=== PATIENT | male | born 1960 | race Caucasian/White ===

== ENCOUNTER 2022-02-09 06:15 | Day surgery (SDC) | payer OTHER, SELFPAY ==
[2022-02-09] VITALS (13 sets, daily range): BP systolic 131–159; BP diastolic 90–100; PULSE 74–88; RESP 14–18; TEMP 36.1–36.9; O2SAT 94–98; BMI 25.2
[2022-02-09] MEDS: SODIUM CHLORIDE 0.9 % (FLUSH) 10 ML SYRINGE IVF (06:50)
[2022-02-09] MEDS: LACTATED RINGERS 1000 ML 1,000 ML 35 ML IV (06:50)
--- NOTE | 2022-02-09 08:13 | W.ANESCHARGE ---
Anesthesia Charges Start Date/Time Anesthesia Start Date: 02/09/22 Anesthesia Start Time: 07:34 Stop Date/Time Anesthesia Stop Date: 02/09/22 Anesthesia Stop Time: 08:50 Summary Emergency: No
[2022-02-09] MEDS: BUPIVACAINE 0.25% 30 ML INJECTION (08:31)
--- NOTE | 2022-02-09 08:42 | PM.GSPRC ---
Operative Note Date of procedure: 02/09/22 Type of Procedure: Laparoscopic right inguinal hernia repair with placement of mesh Procedure Description: After discussing the risks and benefits of the procedure, the patient signed informed consent.? The operative site was marked and the patient was brought to the operating room and placed on the operating table in supine position.? Care was taken to pad the patient's pressure points.?? The patient was then intubated by anesthesia.?? The operative site was then prepped and draped in the usual sterile fashion.? A time-out was then performed. A curvilinear incision was made below the umbilicus. Dissection was carried down to subcutaneous tissue until the anterior rectus fascia was encountered. This was incised off the midline. The rectus muscles were then retracted exposing the posterior fascia. A space maker port with a dissecting balloon was then introduced. The preperitoneal space was inflated under direct vision. The balloon was then removed and the preperitoneal space insufflated. A 10 mm 0 degree scope was then advanced and the area was surveyed for bleeding. Dissection began on the right side. Andrew's ligament and the pubic bone was exposed medially. Following this dissection was carried out laterally. A direct defect was noted. The peritoneal sac was identified and further dissected free from the cord structures using a combination of sharp and blunt dissection. Once the sac was completely reduced, a piece of large Bard 3DMax mesh for the appropriate side was placed into the abdomen. This was positioned with the marker pointed medially. A Tacker was used to attach the mesh medially at Andrew's ligament and 1 tack laterally with care to avoid the epigastric vessels and stay above the inguinal ligament. Once this was completed the sac was placed on top of the mesh and the preperitoneal space desufflated under direct vision. The ports were removed. The fascia from the infraumbilical port was closed with 0 Vicryl. The skin incisions were closed with absorbable subcuticular suture. Sterile dressings were then applied. The scrotum was examined to ensure that both testicles were down. Instrument sponge and needle counts were correct at the end of the case. ? Sterile dressings were then applied. ? The patient was then woken and transported to the recovery area in stable condition. ? The patient tolerated the procedure well. Findings: Direct inguinal hernia, right side Anesthesia: GETA Surgeon: Marcia Castillo MD Estimated blood loss (mL): 5 Condition: stable Disposition: same day
[2022-02-09] MEDS: OXYCODONE 5 MG TABLET PO (09:45)
== END 2022-02-09 10:53 | disposition home or self-care (01) ==
PROVIDERS: Visit Provider Surgery
PROC: (CPT 49650; principal; 2022-02-09 07:30)
DX: K40.90 Unilateral inguinal hernia, without obstruction or gangrene, not specified as recurrent (principal)
CPT/HCPCS: 49650; 00830; A9270; C1781; J0330; J1100; J1885; J2250; J2370; J2405; J2704; J3010; J3490; J7120

== ENCOUNTER 2024-07-16 13:29 | Emergency (ER) | payer OTHER, SELFPAY ==
--- OUTSIDE RECORDS SUMMARY | 2024-07-16 13:32 | XMS_ITS | Clinical Summary ---
Author Organization [facility] Address [place], [place] [address] Care Team Providers Care Petroleum Transport Driver Name Role Phone Harinder Merida MD Primary Care Provider [phone] Allergies Active Allergy Reactions Criticality Noted Date Comments Atorvastatin Other - Describe In Comment Field 06/01/2007 ALT to 126 Medications cholecalciferol, Vitamin D3, 2,000 unit tabletIndications: Vitamin D deficiency Take 1 Tablet (2,000 units) by mouth once daily. 90 Tablet 3 04/29/20 22 Active fluticasone (50 mcg per actuation) nasal solution (FLONASE)Indicatio ns:Chronic sinusitis, unspecified location SPRAY 1 SPRAY INTO EACH NOSTRIL ONCE DAILY 48 mL 1 09/20/19 24 Active sildenafiL, pulm.hypertension, (REVATIO) 20 mg tabletIndications: Erectile dysfunction, unspecified erectile dysfunction type Take 1-5 pills (start at lower dose and increase next time if needed) 30 mins prior to sexual intercourse 30 Tablet 3 05/21/20 24 Active chlorthalidone (HYGROTON) 25 mg tabletIndications: Essential hypertension Take 1 Tablet (25 mg) by mouth once daily. 90 Tablet 3 05/21/20 24 Active ezetimibe (ZETIA) 10 mg tabletIndications: Mixed hyperlipidemia Take 1 Tablet (10 mg) by mouth once daily. 90 Tablet 3 05/21/20 24 Active lisinopriL (PRINIVIL; ZESTRIL) 5 mg tabletIndications: Essential hypertension Take 1 Tablet (5 mg) by mouth once daily. 90 Tablet 3 05/21/20 24 Active rosuvastatin (CRESTOR) 10 mg tabletIndications: Mixed hyperlipidemia Take 1 Tablet (10 mg) by mouth once daily. 90 Tablet 3 05/21/20 24 Active aspirin (ECOTRIN) 81 mg enteric coated tabletIndications: Coronary artery disease involving [place] coronary artery of [place] heart without angina pectoris TAKE 1 TABLET (81 MG) BY MOUTH ONCE DAILY WITH A MEAL. 90 Tablet 3 05/31/20 24 Active Active Problems Problem Noted Date Diagnosed Date Vitamin D deficiency 05/17/2023 Chronic sinusitis 05/17/2023 Moderate coronary artery disease via CT 05/17/20 23 Overview (05/17/2023): Calcium score 185 Routine adult health maintenance 03/31/2017 Overview (03/31/2017): Colonoscopy 03/2017 normal repeat in 10 years Vertigo 05/14/2016 Benign paroxysmal positional vertigo 09/01/2012 Tachycardia 09/14/2011 Mixed hyperlipidemia 05/10/2007 Unspecified essential hypertension 05/10/2007 Resolved Problems Problem Noted Date Diagnosed Date Resolved Date GRIS 10/27/2011 AHI-13.5 10/31/201105/06 Sleep apnea 09/14/2011 05/06/2015 Encounters Date Type Department Care Team Description 05/28/2024 Refill [facility] [address] [place] [address] Harinder Merida MD Refill Request (Aspirin) 05/21/2024 7:00 AM PSYCH SPECIALIST Office Visit [facility] [address] [place] [address] Harinder Merida MD Physical (63 yr old male) 05/21/2024 Travel 05/16/2024 7:55 AM PSYCH SPECIALIST Office Visit [facility] [address] [place] [address] Shahid Riddle MD Employment Physical (63 year old male) 05/16/2024 Travel from Last 3 Months Immunizations Name Administration Dates Next Due AMB INFLUENZA, IIV4 (AGE=>6M OS) V (Flu Clinic Only) 02/13/2020 Influenza Virus, Unspecified 03/17/2021 Influenza, High-dose Inactivated 03/17/2024 Influenza, IIV3 (Age 6-35 mos) 02/15/2018 Influenza, IIV3 (Age >=3 years) 03/27/20 16,02/26/2013,02/16/2012,2010 Influenza, IIV4 05/17/2023, 2,04/17/2015,2013 Influenza, IIV4 (=>6mos) MDV 02/16/2017 Pneumococcal Conj 20-valent (Prevnar 20) 05/21/2024 Td (Age >=7 Years) 03/06/2003 Tdap 05/20/2021,06/25/2011 Zoster (Shingrix-RZV, recombinant) 02/12/2021, Family History Medical History Relation Name Comments Heart Disease Father no CT. CABG at age 60 Good Health Mother Heart attack Paternal Grandfather Cancer No Family History Relation Name Status Comments Father Mother Paternal Grandfather Social History Tobacco Use Types Packs/Day Years Used Date Smoking Tobacco: Never Smokeless Tobacco: Never Tobacco Cessation:Counseling Given: Yes Alcohol Use Standard Drinks/Week Comments Yes 0 (1 standard drink = 0.6 oz pur e alcohol) very occasionally PHQ-2 Answer Date Recorded PHQ-2 TOTAL SCORE 0 05/21/2024 Social Connections Answer Date Recorded Do you often feel lonely or isolated from those around you? 0 05/21/2024 Alcohol Use Answer Date Recorded How often do you have a drink containing alcohol ? 1 02/02/2022 How many drinks containing a lcohol do you have on a typical day when you are drinking? 0 02/02/2022 How often do you have five or more drinks on one occasion? 0 02/02/2022 Financial Resource Strain Answer Date R ecorded Difficulty of Paying Living Expenses 3 05/21/2024 Difficulty of Paying Living Expenses Not on file 05/21/2024 Food Insecurity Answer Date Recorded Do you worry your food will run out before you are able to buy more? 1 05/21/2024 Transportation Needs Answer Date Record ed Does lack of transportation keep you from medica l appointments? 1 05/21/2024 Does lack of transportation keep you from work, meetings or getting things that you need? 1 05/21/2024 Housing Stability Answer Date Recorded What is your housing situation today? 1 05/21/2024 Utilities Answer Date Recorded Do you have trouble paying f or utilities (for example, heat, electricity, water, phone)? 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 Not on file Not on file No t on file Obstetrics History Last Filed Vital Signs Vital Sign Reading Time Taken Comments Blood Pressure 126/78 05/21/2024 7:03 AM PSYCH SPECIALIST Pulse 80 05/21/2024 7:03 AM PSYCH SPECIALIST Temperature 36.6 C (97.9 F) 05/20/2021 8:41 AM PSYCH SPECIALIST Respiratory Rate 18 07/08/2020 11:07 AM PSYCH SPECIALIST Oxygen Saturation 98% 05/21/2024 7:03 AM PSYCH SPECIALIST Inhaled Oxygen Concentration - - Weight 75 kg (165 lb 6.4 oz) 05/21/2024 7:03 AM PSYCH SPECIALIST Height 178 cm (5' 10.08) 05/21/2024 7:03 AM PSYCH SPECIALIST Body Mass Index 23.68 05/21/2024 7:03 AM PSYCH SPECIALIST Plan of Treatment Health Maintenance Due Date Last Done Comments RSV vaccine for adults or (1 - Risk 60-74 years 1-dose series) 2018 BMI (ht and wt on same day) for age 18+ 05/21/2025 05/21/2024, 05/16/2024, 05/17/2023, Additional history exists Depression screening for age 12+ 05/21/2025 05/21/2024, 05/17/2023, 05/17/2023, Additional history exists Colonoscopy through age 75 03/30/2027 03/30/2017, Lipids for age 45-75 03/22/2029 03/22/2024, 05/17/2023, 04/27/2022, Additional history exists Tetanus booster 05/20/2031 05/20/2021, 06/13, 03/06/2003 Hepatitis C screening for ag e 18-79 Completed 05/20/2020 Zoster (shingles) series for age 50+ Completed 02/12/2021, 05/20/2020 Tdap Completed 05/20/2021, 06/25/2011 COVID-19 vaccine series Completed 03/17/20 24, 05/21/2023, 04/10/2022, Additional history exists Influenza for age 65+ Completed 03/17/2024 , 05/17/2023, 03/22/2022, Additional history exists HIV for age 15-65 Completed 05/21/2024 Pneumococcal series for age 50+ Completed 4 Procedures Procedure Name Priority Date/Time Associated Diagnosis Comments PSA TOTAL Routine 05/21/2024 7:52 AM PSYCH SPECIALIST Screening for prostate cancer BASIC METABOLIC PANEL Routine 05/21/2024 7:52 AM PSYCH SPECIALIST Essential hypertension HEPATIC FUNCTION PANEL Routine 05/21/2024 7:52 AM PSYCH SPECIALIST Elevated liver enzymes VITAMIN D 25 (DEFICIENCY) Routine 05/21/2024 7:52 AM PSYCH SPECIALIST Vitamin D deficiency ANTI HIV 1/2 Routine 05/21/2024 7:52 AM PSYCH SPECIALIST Screening for HIV (human immunodeficiency virus) URINALYSIS MACROSCOPIC - [facility] ONLY POC DIP ([facility]) Routine 05/16/2024 8:11 AM PSYCH SPECIALIST Encounter for examination required by Department of Transportation (DOT) LIPID PANEL W REFLEX MEASURED LDL Routine 03/22/2024 10:32 AM CDT Mixed hyperlipidemia ANTI HCV Routine 05/20/2020 1:00 PM PSYCH SPECIALIST Need for hepatitis C screening test COLONOSCOPY 03/30/2017 10:46 AM CDT from Last 3 Months or Most Recently Relevant to Health Maintenance Results * VITAMIN D 25 (DEFICIENCY) (05/21/2024 7:52 AM PSYCH SPECIALIST) VITAMIN D,25-OH,TOTAL,IA 54 30 - 100 ng/mL [facility] Comment: Vitamin D Status 25-OH Vitamin D: Deficiency: <20 ng/mL Insufficiency: 20 - 29 ng/mL Optimal: > or = 30 ng/mL For 25-OH Vitamin D testing on patients on D2-supplementation and patients for whom quantitation of D2 and D3 fractions is required, the QuestAssureD(TM) 25-OH VIT D, (D2,D3), LC/MS/MS is recommended: order code [id number] (patients >2yrs). See Note 1 Note 1 For additional information, please refer to http://Ameriprime.Skymarker/faq/IBF096 (This link is being provided for informational/ educational purposes only.) Blood BLOOD SPECIMEN / Unknown 05/21/2024 7:52 AM PSYCH SPECIALIST 05/21/2024 7:52 AM PSYCH SPECIALIST us Harinder Merida MD SEND OUTS Final Resu lt 5minutes [facility] [address] [place] [address], [facility] [address] [place] [address] * ANTI HIV 1/2 [69362.0] (05/21/2024 7:52 AM PSYCH SPECIALIST) HIV AG/AB, 4TH GEN NON-REACT YORDY NON-REACT YORDY [facility] Comment: HIV-1 antigen and HIV-1/HIV-2 antibodies were not detected. There is no laboratory evidence of HIV infection. PLEASE NOTE: This information has been disclosed to you from records whose confidentiality may be protected by state law. If your state requires such protection, then the state law prohibits you from making any further disclosure of the information without the specific written consent of the person to whom it pertains, or as otherwise permitted by law. A general authorization for the release of medical or other information is NOT sufficient for this purpose. For additional information please refer to http://Ameriprime.Lemnis Lighting/faq/OZW326 (This link is being provided for informational/ educational purposes only.) The performance of this assay has not been clinically validated in patients less than 2 years old. Blood BLOOD SPECIMEN / Unknown 05/21/2024 7:52 AM PSYCH SPECIALIST 05/21/2024 7:52 AM PSYCH SPECIALIST us Harinder Merida MD SEND OUTS Final Resu lt Performing Organization Address [facility]/ZIP Co de Phone Number [facility] [address] [place] [address], [place] [phone] [facility] [address] [facility] [place] [address] * PSA TOTAL (05/21/2024 7:52 AM PSYCH SPECIALIST) PSA, TOTAL 0.63 < OR = 4.00 ng/mL [facility] Comment: The total PSA value from this assay system is standardized against the WHO standard. The test result will be approximately 20% lower when compared to the equimolar-standardized total PSA (Eric Camila). Comparison of serial PSA results should be interpreted with this fact in mind. This test was performed using the Siemens chemiluminescent method. Values obtained from different assay methods cannot be used interchangeably. PSA levels, regardless of value, should not be interpreted as absolute evidence of the presence or absence of disease. Blood BLOOD SPECIMEN / Unknown 05/21/2024 7:52 AM PSYCH SPECIALIST 05/21/2024 7:52 AM PSYCH SPECIALIST us Harinder Merida MD CHEMISTRY Final Resu lt Performing Organization Address [facility]/ZIP Co de Phone Number 5minutes [facility] [address] [place] [address], [place] [phone] [facility] [address] [place] [address] * (ABNORMAL) HEPATIC FUNCTION PANEL (05/21/2024 7:52 AM PSYCH SPECIALIST) PROTEIN, TOTAL 6.6 6.1 - 8.1 g/dL [facility] ALBUMIN 4.3 3.6 - 5.1 g/dL [facility] GLOBULIN 2.3 1.9 - 3.7 g/dL (calc) [facility] ALBUMIN/GLOBULIN RATIO 1.9 1.0 - 2.5 (calc) [facility] BILIRUBIN, TOTAL 0.8 0.2 - 1.2 mg/dL [facility] BILIRUBIN, DIRECT 0.2 < OR = 0.2 mg/dL [facility] BILIRUBIN, INDIRECT 0.6 0.2 - 1.2 mg/dL (calc) [facility] ALKALINE PHOSPHATASE 24(L) 35 - 144 U/L [facility] AST 31 10 - 35 U/L [facility] ALT 24 9 - 46 U/L [facility] Blood BLOOD SPECIMEN / Unknown 05/21/2024 7:52 AM PSYCH SPECIALIST 05/21/2024 7:52 AM PSYCH SPECIALIST us Harinder Merida MD CHEMISTRY Final Resu lt 5minutes [facility] [address] [place] [address], [address] [address] * BASIC METABOLIC PANEL (05/21/2024 7:52 AM PSYCH SPECIALIST) Pathologist [facility] GLUCOSE 93 65 - 99 mg/dL [facility] Comment: Fasting reference interval UREA NITROGEN (BUN) 13 7 - 25 mg/dL [facility] CREATININE 0.91 0.70 - 1.35 mg/dL [facility] EGFR 94 > OR = 60 mL/min/1. 73m2 [facility] BUN/CREATININE RATIO SEE NOTE: 6 - 22 (calc) [facility] Comment: Not Reported: BUN and Creatinine are within reference range. SODIUM 139 135 - 146 mmol/L [facility] POTASSIUM 3.9 3.5 - 5.3 mmol/L [facility] CHLORIDE 102 98 - 110 mmol/L [facility] CARBON DIOXIDE 29 20 - 32 mmol/L [facility] ELECTROLYTE BALANCE 8 7 - 17 mmol/L (calc) [facility] CALCIUM 9.5 8.6 - 10.3 mg/dL [facility] Blood BLOOD SPECIMEN / Unknown 05/21/2024 7:52 AM PSYCH SPECIALIST 05/21/2024 7:52 AM PSYCH SPECIALIST Harinder Merida MD CHEMISTRY Final Resu lt Performing Organization Address City/[facility]/ZIP Co de Phone Number [facility] [address] [place] [address], [place] [phone] [facility] [address] [place] [address] * POCT Urinalysis Dipstick Only (05/16/2024 8:11 AM PSYCH SPECIALIST) Pathologist [facility] PH 7.5 5.0 - 8.0 [facility] SPECIFIC GRAVITY 1.015 1.001 - 1.035 [facility] GLUCOSE NEGATIVE NEGATIVE [facility] BILIRUBIN NEGATIVE NEGATIVE [facility] KETONES NEGATIVE NEGATIVE [facility] OCCULT BLOOD NEGATIVE NEGATIVE [facility] PROTEIN NEGATIVE NEGATIVE [facility] NITRITE NEGATIVE NEGATIVE [facility] LEUKOCYTE ESTERASE NEGATIVE NEGATIVE [facility] Urine URINE SPECIMEN / Unknown 05/16/2024 8:11 AM PSYCH SPECIALIST 05/16/2024 8:12 AM PSYCH SPECIALIST us Shahid Riddle MD URINE Final Re sult Performing Organization Address City/[facility]/ZIP Co de Phone Number [facility] [address] [place] [address], [place] [phone] [facility] [address] [place] [address] * LIPID PANEL W REFLEX MEASURED LDL (03/22/2024 10:32 AM CDT) CHOLESTEROL, TOTAL 144 <200 mg/dL [facility] HDL CHOLESTEROL 60 > OR = 40 mg/dL [facility] TRIGLYCERIDES 125 <150 mg/dL [facility] LDL-CHOLESTEROL 63 mg/dL (calc) [facility] Comment: Reference range: <100 Desirable range <100 mg/dL for primary prevention; <70 mg/dL for patients with CHD or diabetic patients with > or = 2 CHD risk factors. LDL-C is now calculated using the Majo calculation, which is a validated novel method providing better accuracy than the Friedewald equation in the estimation of LDL-C. Marino SS et al. BON. 2013;310(71): 4197-5594 (http://education.Skymarker/faq/WNM697) CHOL/HDLC RATIO 2.4 <5.0 (calc) [facility] NON HDL CHOLESTEROL 84 <130 mg/dL (calc) [facility] Comment: For patients with diabetes plus 1 major ASCVD risk factor, treating to a non-HDL-C goal of <100 mg/dL (LDL-C of <70 mg/dL) is considered a therapeutic option. Blood BLOOD SPECIMEN / Unknown 03/22/2024 10:32 AM CDT 03/22/2024 10:32 AM CDT Harinder Merida MD CHEMISTRY Final Resu lt 5minutes [facility] [address] [place] [address], [facility] [address] [place] [address] * ANTI HCV (05/20/2020 1:00 PM PSYCH SPECIALIST) [facility] HEPATITIS C ANTIBODY Non-React yordy Non-React yordy 05/20/2020 7:46 PM PSYCH SPECIALIST [facility] Comment:Antibodies to HCV no t detected; does not exclude the possibility of exposure to HCV. Blood BLOOD SPECIMEN / Unknown Venipuncture / Unknown 05/20/2020 1:00 PM PSYCH SPECIALIST 05/20/2020 1:00 PM PSYCH SPECIALIST us Harinder Merida MD SEND OUTS Final Resu lt [facility] [address] [place] [address], [place] * COLONOSCOPY (03/30/2017 10:46 AM CDT) 03/30/2017 10:4 6 AM CDT Narrative Transcriptions Marino Oloms MD - 03/30/2017 12:01 PM CDT Patient Name: Kirby Sanches Procedure Date: 03/30/2017 Gender: Male Date of : 1960 Admit Type: Outpatient Procedure: Colonoscopy Proceduralist: Marino Olmos MD , Tracy Hess (Nurse) Referring MD: Harinder Merida Indications/Pre-Op Diagnosis: Screening for colorectal malignant neoplasm, This is the patient's first colonoscopy Medications: Fentanyl 100 micrograms IV, Midazolam 4 mgIV, The level of sedation administered wasmoderate Procedure Description: The patient had risks, benefits and alternatives explained to andgave informed consent. The patient had a stable cardiopulmonary status and judged an adequate candidate for conscious sedation. The [id number] was passed through the anus and advanced tothe cecum, identified by appendiceal orifice and ileocecal valve. The colonoscopy was performed without difficulty. The patient toleratedthe procedure well. The quality of the bowel preparation was good. The ileocecal valve, appendiceal orifice, and rectum were photographed. Complications: No immediate complications. Estimated Blood Loss & Specimen: Estimated blood loss: none. Specimen collected - Yes and sent to Laboratory Findings: The perianal and digital rectal examinations were normal. A 3 mm polyp was found in the ascending colon. The polyp was sessile. Biopsies were taken with a cold forceps for histology. Many small-mouthed diverticula were found in the sigmoid colon. The exam was otherwise without abnormality on direct and retroflexion views. Impressions/Post-Op Diagnosis: - One 3 mm polyp in the ascending colon. Biopsied. - Diverticulosis in the sigmoid colon. - The examination was otherwise normal on direct and retroflexionviews. Recommendation: - Patient has a contact number available for emergencies. The signsand symptoms of potential delayed complications were discussed with the patient. Return to normal activities tomorrow. Written discharge instructions were provided to the patient. - Resume previous diet. - Continue present medications. - Await pathology results. - Repeat colonoscopy is recommended. The colonoscopy date will be determined after pathology results from today's exam become available for review. Moderate Sedation: Moderate (conscious) sedation was administered by the endoscopy nurse and supervised by the endoscopist. The following parameters were monitored: oxygen saturation, heart rate, respiratory rate, blood pressure, adequacy of pulmonary ventilation and reponse to care. [facility] and nursing notes for moderate sedation details. Total physician intraservice time was 21 minutes. Marino Olmos MD 03/30/2017 12:01:44 PM This report has been signed electronically. Note Initiated On: 03/30/2017 10:46 AM Scope In: 11:39:44 AM Scope Withdrawal Time 0 hours 9 minutes 48 seconds Scope Out: 11:57:28 AM us Marino Olmos MD PROCEDURE ORD Final Res ult from Last 3 Months or Most Recently Relevant to Health Maintenance Insurance [facility] [employer] * Guarantor: [employer] Account Type Relation to Patient Date of Phone Billing Address [facility] [address] [address] Care Teams Petroleum Transport Driver Relationship Specialty Start Date End Date Harinder Merida MD [address] [place] [address] PCP - General Family Practice 06/15/13
[2024-07-16 13:38] VITALS: BP 145/97; PULSE 90; RESP 16; TEMP 37; O2SAT 97; BMI 22.8
--- NOTE | 2024-07-16 14:07 | CRLHL7_ITS ---
For Patients: As a result of the Century Cures Act, medical imaging exams and procedure reports are released immediately into your electronic medical record. You may view this report before your referring provider. If you have questions, please contact your health care provider. INDICATION: Posttraumatic left shoulder pain. Clinical concern for possible left sternoclavicular subluxation/dislocation. COMPARISON: Same day radiographs at 1233 hours. TECHNIQUE: CT of the chest without intravenous contrast. Please note that all CT scans at this facility use dose modulation, iterative reconstruction, and/or weight-based dosing when appropriate to reduce radiation dose to as low as reasonably achievable. FINDINGS: THORAX Visualized Lower Neck: No lower cervical adenopathy. Lungs: No significant pulmonary findings. Bilateral posterior segment lower lobe pleural-based linear opacities are consistent with subsegmental atelectasis or minor fibrosis, not considered clinically significant. Pleura: No pleural effusion. No pneumothorax. Mediastinum: Thoracic aorta and pulmonary trunk are normal in caliber. Moderate to severe multivessel atherosclerotic coronary artery calcifications are noted incidentally. Trachea and esophagus are normal in appearance. No mediastinal lymphadenopathy. ABDOMEN Visualized Upper Abdomen: No significant findings. SKELETON AND BODY WALL There is subcutaneous hyperattenuating fat stranding superficial to the left sternoclavicular joint (series 2; image 41) consistent with edema/hemorrhage in the periarticular soft tissues. No evidence of significant subluxation or dislocation of the left sternoclavicular joint. No fracture of the medial left clavicle or manubrium is identified. No acute traumatic injury is otherwise identified. The bilateral acromioclavicular joints are incompletely included in the field of view. IMPRESSION: There is subcutaneous hyperattenuating fat stranding superficial to the left sternoclavicular joint (series 2; image 41) consistent with edema/hemorrhage involving the periarticular soft tissues. No evidence of anterior or posterior subluxation or dislocation of the left sternoclavicular joint. No fracture of the medial left clavicle or manubrium is identified. Incidental findings described in the body of the report. Please note that all CT scans at this facility use dose modulation, iterative reconstruction, and/or weight-based dosing when appropriate to reduce radiation dose to as low as reasonably achievable. Dictated by Hilario Loera MD @ 07/16/2024 2:51:53 PM (Electronically Signed)
--- NOTE | 2024-07-16 14:08 | ED.GENADULT ---
HPI - General Adult General Chief complaint: Chest Pain Stated complaint: Fall Tuesday, chest pain Time Seen by Provider: 07/16/24 13:32 History of Present Illness HPI narrative: This 63-year-old male came to urgent care today and was sent here because of abnormal exam of his left clavicle. He did have an x-ray there which showed no sign of fracture. He comes here because his left clavicle on the medial aspect appears to be protruding like a possible subluxation. He states that he was using a chain saw yesterday and fell off of an incline and landed on the angle of his left shoulder. He did not have loss of consciousness. He reports pain in his left clavicle region. He also has some pain in his left lateral ribs. He feels this pain when he coughs but otherwise not much discomfort. Related Data Home Medications ?Medication ?Instructions ?Recorded ?Confirmed chlorthalidone 25 mg tablet 25 mg PO DAILY 02/08/22 07/16/24 lisinopril 10 mg tablet 10 mg PO DAILY 02/08/22 07/16/24 rosuvastatin 5 mg tablet (Crestor) 5 mg PO DAILY 02/08/22 07/16/24 aspirin 81 mg tablet,delayed 81 mg PO DAILY 07/16/24 07/16/24 release Previous Rx's ?Medication ?Instructions ?Recorded hydrocodone 5 mg-acetaminophen 325 1 tab PO Q4-6H PRN pain #15 tabs 07/16/24 mg tablet ketorolac 10 mg tablet 10 mg PO Q8H 5 days #15 tabs 07/16/24 Allergies Allergy/AdvReac Type Severity Reaction Status Date / Time ezetimibe (From Zetia) Allergy Severe liver Verified 07/16/24 13:45 problems Review of Systems Status of ROS: Reports: 10 or more systems reviewed and unremarkable except as noted in History and below Narrative: Constitutional: No fevers, no weight gain or loss. Eyes: No discharge. No vision changes. HENT: No congestion, no sore throat, no ear pain. Cardiovascular: No chest pain, no palpitations. Respiratory: No shortness of breath, no wheezes, no cough. Gastrointestinal: No abdominal pain, no vomiting, no diarrhea. Genitourinary: No dysuria, no hematuria. Musculoskeletal: Left clavicle injury as described above. Skin: No rashes, no pruritis. Neurological: No dizziness, weakness, sensory change, speech change. Endo/Heme/Allergies: No bruising or bleeding. No polydipsia. Pysch: no suicidality, no anxiety, no insomnia. All other systems reviewed and are negative. [facility] Medical History (Updated 07/16/24 @ 15:11 by Jose Zamudio MD) Benign paroxysmal positional vertigo ?H81.10 - Benign paroxysmal vertigo, unspecified ear (ICD-10) Tachycardia, unspecified ?R00.0 - Tachycardia, unspecified (ICD-10) Essential (primary) hypertension ?I10 - Essential (primary) hypertension (ICD-10) Mixed hyperlipidemia ?E78.2 - Mixed hyperlipidemia (ICD-10) Surgical History (Updated 02/08/22 @ 11:06 by Shala Telles RN) [place] teeth extracted ?K08.409 - Partial loss of teeth, unspecified cause, unspecified class (ICD-10) H/O vasectomy ?Z98.52 - Vasectomy status (ICD-10) Social History Smoking Status: Never smoker Do you use any of these nicotine containing products: None How often do you have a drink containing alcohol: monthly or less Alcohol type: beer How many standard drinks containing alcohol do you have on a typical day: 1 or 2 How often do you have six or more drinks on one occasion: Never AUDIT-C Alcohol total score: 1 Non-prescribed substance use: denies use Caffeine: Yes (2-3 coffee per day) Exam Narrative: Exam Narrative: Constitutional: Well-developed, well-nourished, no acute distress. HEENT: Normocephalic, atraumatic. Neck: Normal range of motion. Nontender. Supple. No midline tenderness when palpating. Heart: Regular. No murmurs. Normal rate. Intact distal pulses. Lungs: Clear to auscultation. No chest discomfort. No wheezes, rhonchi, or rales. Abdomen: Normal bowel sounds. Nontender. No rebound tenderness. Genitalia: Deferred. Back: No midline tenderness. Normal range of motion. Extremities: Normal range of motion. The medial aspect of the left clavicle appears more prominent suggesting possible subluxation. Skin: Intact. No rash. Warm. No erythema or pallor. Neurologic: No altered sensation. No weakness. Alert and oriented. Psychiatric: No suicidality. No anxiety or depression. No insomnia. Nursing notes and vitals signs are reviewed. Const: Vital Signs, click to edit/add: Vital Signs - 24 hr 07/16/24 13:38 Temperature 98.6 F Pulse Rate [Pulse Oximeter] 90 Respiratory Rate 16 Blood Pressure [Ri ght Upper Arm] 145/97 H Pulse Oximetry 97 Oxygen Delivery Me thod Room Air Course Vital Signs Vital signs: Initial Vital Signs Temperature 98.6 F 07/16/24 13:38 Temperature Source Temporal Artery Scan 07/16/24 13:38 Pulse Rate 90 07/16/24 13:38 Respiratory Rate 16 07/16/24 13:38 Blood Pressure 145/97 H 07/16/24 13:38 Blood Pressure Mean 113 H 07/16/24 13:38 Blood Pressure Position Sitting 07/16/24 13:38 Pulse Oximetry 97 07/16/24 13:38 Oxygen Delivery Method Room Air 07/16/24 13:38 Vital Signs Temperature 98.6 F 07/16/24 13:38 Pulse Rate 90 07/16/24 13:38 Respiratory Rate 16 07/16/24 13:38 Blood Pressure 145/97 H 07/16/24 13:38 Pulse Oximetry 97 07/16/24 13:38 Oxygen Delivery Method Room Air 07/16/24 13:38 Temperature 98.6 F 07/16/24 13:38 Pulse Rate 90 07/16/24 13:38 Respiratory Rate 16 07/16/24 13:38 Blood Pressure 145/97 H 07/16/24 13:38 Pulse Oximetry 97 07/16/24 13:38 Oxygen Delivery Method Room Air 07/16/24 13:38 Medical Decision Making [facility] Narrative Medical decision making narrative: This patient comes in for evaluation of injuries from a fall that occurred yesterday. He has some swelling or prominence involving the medial aspect of his left clavicle. A CT scan of his chest is obtained and shows no sign of fracture or subluxation. His lungs appear normal and there is no sign of any kind of vascular injury. The prominence is due to soft tissue swelling. This is reassuring to the patient. He does have chest wall pain and stated that it was difficult to sleep last night. I did provide prescriptions for Toradol and a few tablets of [place]. Imaging Data CT scan - chest: Radiologist's impression: There is subcutaneous hyperattenuating fat stranding superficial to the left sternoclavicular joint (series 2; image 41) consistent with edema/hemorrhage involving the periarticular soft tissues. No evidence of anterior or posterior subluxation or dislocation of the left sternoclavicular joint. No fracture of the medial left clavicle or manubrium is identified. Discharge Plan Discharge Clinical Impression: Contusion of rib on left side Patient Disposition: Home, Self-Care Condition: Stable Additional Instructions: Take medication as needed and directed. Increase activity as tolerated. Follow up with MD return if worsening. Prescriptions: New hydrocodone-acetaminophen 5-325 mg tablet 1 tab PO Q4-6H PRN (Reason: pain) Qty: 15 0RF ketorolac 10 mg tablet 10 mg PO Q8H 5 Days Qty: 15 0RF No Action aspirin 81 mg tablet,delayed release (DR/EC) 81 mg PO DAILY chlorthalidone 25 mg tablet 25 mg PO DAILY lisinopril 10 mg tablet 10 mg PO DAILY rosuvastatin [Crestor] 5 mg tablet 5 mg PO DAILY Follow Up/Referrals: Provider,Not a Local [Non-Staff] - Stand Alone Forms: [employer]ous[facility] Info Instructions
--- OUTSIDE RECORDS SUMMARY | 2024-07-16 14:39 | XMS_ITS | Clinical Summary ---
Author Organization [employer] [facility] Address [place], [place] [address] Care Team Providers Care Mechanical Spreader Operator Name Role Phone Harinder Merida MD Primary Care Provider [phone] Allergies Active Allergy Reactions Criticality Noted Date [...] enteric coated tabletIndications: Coronary artery disease involving kaw coronary artery of kaw heart without angina pectoris TAKE 1 TABLET [...] Type Department Care Team Description 05/28/[address] [facility] [address] [place] [address] Harinder Merida MD Refill Request (Aspirin) 05/21/2024 7:00 AM METAL CEILING HANGER Office Visit [facility] [address] [place] [address] Harinder Merida MD Physical (63 yr old male) 05/21/2024 Travel 05/16/2024 7:55 AM METAL CEILING HANGER Office Visit [facility] [address] [place] [address] Shahid Riddle MD Employment Physical (63 year [...] Relation Name Comments Heart Disease Father no ME. 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 Not on file Not on file No t on file Obstetrics History Last Filed Vital Signs Vital Sign Reading Time Taken Comments Blood Pressure 126/78 05/21/2024 7:03 AM METAL CEILING HANGER Pulse 80 05/21/2024 7:03 AM METAL CEILING HANGER Temperature 36.6 C (97.9 F) 05/20/2021 8:41 AM METAL CEILING HANGER Respiratory Rate 18 07/08/2020 11:07 AM METAL CEILING HANGER Oxygen Saturation 98% 05/21/2024 7:03 AM METAL CEILING HANGER Inhaled Oxygen Concentration - - Weight 75 kg (165 lb 6.4 oz) 05/21/2024 7:03 AM METAL CEILING HANGER Height 178 cm (5' 10.08) 05/21/2024 7:03 AM METAL CEILING HANGER Body Mass Index 23.68 05/21/2024 7:03 AM METAL CEILING HANGER Plan of Treatment Health Maintenance Due Date [...] Comments PSA TOTAL Routine 05/21/2024 7:52 AM METAL CEILING HANGER Screening for prostate cancer BASIC METABOLIC PANEL Routine 05/21/2024 7:52 AM METAL CEILING HANGER Essential hypertension HEPATIC FUNCTION PANEL Routine 05/21/2024 7:52 AM METAL CEILING HANGER Elevated liver enzymes VITAMIN D 25 (DEFICIENCY) Routine 05/21/2024 7:52 AM METAL CEILING HANGER Vitamin D deficiency ANTI HIV 1/2 Routine 05/21/2024 7:52 AM METAL CEILING HANGER Screening for HIV (human immunodeficiency virus) URINALYSIS MACROSCOPIC - [facility] ONLY POC DIP ([facility]) Routine 05/16/2024 8:11 AM METAL CEILING HANGER Encounter for examination required by Department of Transportation (DOT) LIPID PANEL W REFLEX MEASURED LDL Routine 03/22/2024 10:32 AM CDT Mixed hyperlipidemia ANTI HCV Routine 05/20/2020 1:00 PM METAL CEILING HANGER Need for hepatitis C screening test COLONOSCOPY 03/30/2017 10:46 AM CDT from Last 3 Months or Most Recently Relevant to Health Maintenance Results * VITAMIN D 25 (DEFICIENCY) (05/21/2024 7:52 AM METAL CEILING HANGER) VITAMIN D,25-OH,TOTAL,IA 54 30 - 100 ng/mL [facility] Comment: Vitamin D Status 25-OH Vitamin D: Deficiency: <20 ng/mL Insufficiency: 20 - 29 ng/mL Optimal: > or = 30 ng/mL For 25-OH Vitamin D testing on patients on D2-supplementation and patients for whom quantitation of D2 and D3 fractions is required, the QuestAssure[facility](TM) 25-OH VIT D, (D2,D3), LC/MS/MS is recommended: order code [id number] (patients >2yrs). See Note 1 Note 1 For additional information, please refer to http://[employer].WhoWantsMe/faq/RZD909 (This link is being provided for informational/ educational purposes only.) Blood BLOOD SPECIMEN / Unknown 05/21/2024 7:52 AM METAL CEILING HANGER 05/21/2024 7:52 AM METAL CEILING HANGER us Harinder Merida MD SEND OUTS Final Resu lt [facility] [address] [place] [address], [facility] [address] [place] [address] * ANTI HIV 1/2 [08861.0] (05/21/2024 7:52 AM METAL CEILING HANGER) HIV AG/AB, 4TH GEN NON-REACT YORDY NON-REACT YORDY [facility] Comment: HIV-1 antigen and HIV-1/HIV-2 antibodies [...] purpose. For additional information please refer to http://[employer]here [employer])/faq/CEQ846 (This link is being provided for informational/ educational purposes only.) The performance of this assay has not been clinically validated in patients less than 2 years old. Blood BLOOD SPECIMEN / Unknown 05/21/2024 7:52 AM METAL CEILING HANGER 05/21/2024 7:52 AM METAL CEILING HANGER us Harinder Merida MD SEND OUTS Final Resu lt Performing Organization Address [facility]/ZIP Co de Phone Number [facility] [address] [place] [address], [place] [phone] [facility] [address] [facility] [place] [address] * PSA TOTAL (05/21/2024 7:52 AM METAL CEILING HANGER) PSA, TOTAL 0.63 < OR = 4.00 ng/mL [facility] [place] Comment: The total PSA value [...] BLOOD SPECIMEN / Unknown 05/21/2024 7:52 AM METAL CEILING HANGER 05/21/2024 7:52 AM METAL CEILING HANGER us Harinder Merida MD CHEMISTRY Final Resu lt Performing Organization Address [facility]/ZIP Co de Phone Number [facility] [address] [place] [address], [place] [phone] [facility] [address] [place] [address] * (ABNORMAL) HEPATIC FUNCTION PANEL (05/21/2024 7:52 AM METAL CEILING HANGER) PROTEIN, TOTAL 6.6 6.1 - 8.1 g/dL [...] BLOOD SPECIMEN / Unknown 05/21/2024 7:52 AM METAL CEILING HANGER 05/21/2024 7:52 AM METAL CEILING HANGER us Harinder Merida MD CHEMISTRY Final Resu lt [facility] [address] [place] [address], [facility] [address] * BASIC METABOLIC PANEL (05/21/2024 7:52 AM METAL CEILING HANGER) Pathologist [facility] GLUCOSE 93 65 - 99 mg/dL [facility] [...] BLOOD SPECIMEN / Unknown 05/21/2024 7:52 AM METAL CEILING HANGER 05/21/2024 7:52 AM METAL CEILING HANGER Harinder Merida MD CHEMISTRY Final Resu lt Performing Organization Address City/[facility]/ZIP Co de Phone Number [facility] [address] [place] [address], [place] [phone] [facility] [address] [place] [address] * POCT Urinalysis Dipstick Only (05/16/2024 8:11 AM METAL CEILING HANGER) Pathologist [facility] PH 7.5 5.0 - 8.0 [facility] SPECIFIC GRAVITY 1.015 1.001 - 1.035 [facility] GLUCOSE NEGATIVE NEGATIVE [facility] BILIRUBIN NEGATIVE NEGATIVE [facility] KETONES NEGATIVE NEGATIVE [facility] OCCULT BLOOD NEGATIVE NEGATIVE [facility] PROTEIN NEGATIVE NEGATIVE [facility] NITRITE NEGATIVE NEGATIVE [facility] LEUKOCYTE ESTERASE NEGATIVE NEGATIVE [facility] Urine URINE SPECIMEN / Unknown 05/16/2024 8:11 AM METAL CEILING HANGER 05/16/2024 8:12 AM METAL CEILING HANGER us Shahid Riddle MD URINE Final Re sult Performing Organization Address City/[facility]/ZIP Co de Phone Number [facility] [address] [place] [address], [place] [phone] [facility] [address] [place] [address] * LIPID PANEL W REFLEX MEASURED LDL (03/22/2024 10:32 AM CDT) CHOLESTEROL, TOTAL 144 <200 mg/dL [facility] HDL CHOLESTEROL 60 > OR = 40 mg/dL [facility] TRIGLYCERIDES 125 <150 mg/dL [facility] [place] LDL-CHOLESTEROL 63 mg/dL (calc) [facility] Comment: Reference range: <100 Desirable range <100 mg/dL for primary prevention; <70 mg/dL for patients with CHD or diabetic patients with > or = 2 CHD risk factors. LDL-C is now calculated using the Majo calculation, which is a validated novel method providing better accuracy than the Friedewald equation in the estimation of LDL-C. Marino SS et al. BON. 2013;310(12): 2277-4991 (http://education.WhoWantsMe/faq/RHT909) CHOL/HDLC RATIO 2.4 <5.0 (calc) [facility] [place] NON HDL CHOLESTEROL 84 <130 mg/dL (calc) [facility] [place] Comment: For patients with diabetes plus 1 major ASCVD risk factor, treating to a non-HDL-C goal of <100 mg/dL (LDL-C of <70 mg/dL) is considered a therapeutic option. Blood BLOOD SPECIMEN / Unknown 03/22/2024 10:32 AM CDT 03/22/2024 10:32 AM CDT Harinder Merida MD CHEMISTRY Final Resu lt [facility] [address] [place] [address], [facility] [address] [place] [address] * ANTI HCV (05/20/2020 1:00 PM METAL CEILING HANGER) [facility] HEPATITIS C ANTIBODY Non-React yordy Non-React yordy 05/20/2020 7:46 PM METAL CEILING HANGER [facility] Comment:Antibodies to HCV no t detected; does not exclude the possibility of exposure to HCV. Blood BLOOD SPECIMEN / Unknown Venipuncture / Unknown 05/20/2020 1:00 PM METAL CEILING HANGER 05/20/2020 1:00 PM METAL CEILING HANGER us Harinder Merida MD SEND OUTS Final Resu lt [facility] [address] [place] [address], [place] * COLONOSCOPY (03/30/2017 10:46 AM CDT) 03/30/2017 10:4 6 AM CDT Narrative Transcriptions Marino Olmos MD - 03/30/2017 12:01 PM CDT Patient [...] adequate candidate for conscious sedation. The [id number] was passed through the anus and advanced [...] reponse to care. [facility] and nursing notes for [...] Most Recently Relevant to Health Maintenance Insurance [facility] [employer] * Guarantor: [employer] Account Type Relation to Patient Date of Phone Billing Address [facility] [address] [address] Care Teams Mechanical Spreader Operator Relationship Specialty Start Date End Date Harinder Merida MD [address] [place] [address] PCP - General Family Practice 06/15/13
== END 2024-07-16 15:36 | disposition home or self-care (01) ==
PROVIDERS: Emergency Provider Emergency Medicine Emergency Medical Services; PCP Surgery
DX: S20.212A Contusion of left front wall of thorax, initial encounter (principal)
CPT/HCPCS: 71250; 99284